=== PATIENT | male | born 1960 | race Caucasian/White ===

== ENCOUNTER 2021-03-19 13:53 | Emergency (ER) | payer SELFPAY ==
[~2021-03-19] VITALS: Ht 185.4 cm; Wt 132.5 kg
--- NOTE | 2021-03-19 14:24 | EKG ---
[address] [address] Test Date: 2021-03-19 Test Time: 14:17:21 Pat Name: FERNANDA HERMAN Department: Room: Gender: M Creative Coordinator: MERLENE : 1960 Requested By: HAJA SCHULER Order Number: [id number] Reading MD: Nolan Lara MD Measurements Intervals [place] Rate: 70 P: 46 VT: 196 QRS: 20 QRSD: 94 T: 23 QT: 384 QTc: 417 Interpretive Statements SINUS RHYTHM Electronically Signed On 03-21-2021 13:58:54 [employer]PERATOR by Nolan Lara MD
[2021-03-19 14:33] LABS: BASO % 1 % (0-3); EOS # 0.1 x10^3/uL (0.0-0.7); EOS % 1 % (0-3); HEMATOCRIT 43.7 % (39.0-53.0); HEMOGLOBIN 14.5 g/dL (13.0-17.5); LYMPH # 2.1 x10^3/uL (1.0-4.8); LYMPH % 24 % (24-48); MEAN CORPUSCULAR HEMOGLOBIN 28 pg (25-35); MEAN CORPUSCULAR HGB CONC 33 g/dL (31-37); MEAN CORPUSCULAR VOLUME 83 fL (79-100); MONO # 0.7 x10^3/uL (0.0-1.1); MONO % 8 % (0-9); NEUT # 5.8 x10^3uL (1.8-7.7); NEUT % 66 % (31-73); PLATELET COUNT 242 x10^3/uL (140-400); RED BLOOD COUNT 5.26 x10^6/uL (4.30-5.70); RED CELL DISTRIBUTION WIDTH 13.3 % (11.5-14.5); WHITE BLOOD COUNT 8.7 x10^3/uL (4.0-11.0)
--- NOTE | 2021-03-19 14:45 | PHYS DOC ---
Past History Past Surgical History: Cholecystectomy, Other Additional Past Surgical Histo: bilat shoulder Alcohol Use: Rarely General Adult EDM: Chief Complaint: SHORTNESS OF BREATH HPI: HPI: 60-year-old male presents with shortness of breath. The patient had an episode yesterday where he was helping a friend move a couch and he became extremely winded after only going up 1 flight of stairs. The patient was then fatigued for the rest of the day. This was an unusual level of fatigue for the patient. He had COVID-19 1 year ago and has had some breathing issues since that time but not this severe. He decided he should come in for evaluation to make sure was not cardiac issue. He denies chest pain or diaphoresis. He has no other specific symptoms or complaints at this time. Review of Systems: Review of Systems: Constitutional: Denies fever or chills Eyes: Denies change in visual acuity HENT: Denies nasal congestion or sore throat Respiratory: shortness of breath Cardiovascular: Denies chest pain or edema GI: Denies abdominal pain, nausea, vomiting, bloody stools or diarrhea : Denies dysuria Musculoskeletal: Denies back pain or joint pain Integument: Denies rash Neurologic: Denies headache, focal weakness or sensory changes Endocrine: Denies polyuria or polydipsia Lymphatic: Denies swollen glands Psychiatric: Denies depression or anxiety Physical Exam: PE: Constitutional: Well developed, well nourished, morbidly obese, no acute distress, non-toxic appearance. [] HENT: Normocephalic, atraumatic, bilateral external ears normal, oropharynx moist, no oral exudates, nose normal. [] Eyes: PERRLA, EOMI, conjunctiva normal, no discharge. [] Neck: Normal range of motion, no tenderness, supple, no stridor. [] Cardiovascular: Heart rate regular rhythm, no murmur [] Lungs & Thorax: Bilateral breath sounds clear to auscultation [] Abdomen: Bowel sounds normal, soft, no tenderness, no masses, no pulsatile masses. [] Skin: Warm, dry, no erythema, no rash. [] Back: No tenderness, no CVA tenderness. [] Extremities: No tenderness, no cyanosis, no clubbing, ROM intact, no edema. [] Neurologic: Alert and oriented X 3, normal motor function, normal sensory function, no focal deficits noted. [] Psychologic: Affect normal, judgement normal, mood normal. [] Current Patient Data: Vital Signs: Vital Signs Date Time Temp Pulse Resp B/P (MAP) Pulse Ox O2 Delivery O2 Flow Rate FiO2 03/19/21 14:04 97.8 79 20 146/93 (110) 96 Room Air EKG: EKG: [] Radiology/Procedures: Radiology/Procedures: [] Impressions: XR CHEST 1V CLINICAL INDICATIONS: Shortness of breath COMPARISON: February 21, 2012. Findings: No acute lung infiltrate or pleural effusion or pulmonary edema or lung mass or pneumothorax is seen. The heart size, pulmonary vasculature, mediastinum and both vidhi are stable. IMPRESSION: No acute radiographic abnormality is seen. Electronically signed by: Fernanda Freeman MD (03/19/2021 2:52 PM) [id number] DICTATED AND SIGNED BY: FERNANDA FREEMAN MD DATE: 03/19/21 1449 CC: HAJA SCHULER DO; ANNIE STEWARD ~MTH0 0 Heart Score: C/O Chest Pain: No Risk Factors: Risk Factors: DM, Current or recent (<one month) smoker, HTN, HLP, family history of CAD, obesity. Risk Scores: Score 0 - 3: 2.5% MACE over next 6 weeks - Discharge Home Score 4 - 6: 20.3% MACE over next 6 weeks - Admit for Clinical Observation Score 7 - 10: 72.7% MACE over next 6 weeks - Early Invasive Strategies Course & Med Decision Making: Course & Med Decision Making Pertinent Labs and Imaging studies reviewed. (See chart for details) The patient's labs are unremarkable. His troponin is negative. His EKG is unremarkable. His chest x-ray is negative for acute findings. The patient may be short of breath due to long-term effects of COVID-19 or deconditioning. I have advised that he follow-up with his primary care provider to consider stress test if he keeps having episodes like this. He is stable for discharge at this time. [] Dragon Disclaimer: Dragon Disclaimer: This electronic medical record was generated, in whole or in part, using a voice recognition dictation system. Departure Departure: Impression: Primary Impression: Short of breath on exertion Referrals: ANNIE STEWARD (PCP) Patient Instructions: Shortness of Breath, [id number] HAJA SCHULER DO Mar 19, 2021 14:45
[2021-03-19 14:48] LABS: CALCIUM 9.5 mg/dL (8.5-10.1); CREATININE 1.1 mg/dL (0.7-1.3); GFR 68.3; POTASSIUM 3.9 mmol/L (3.5-5.1)
[2021-03-19 14:53] LABS: ALBUMIN 4.1 g/dL (3.4-5.0); ALBUMIN/GLOBULIN RATIO 1.2 (1.0-1.7); TOTAL BILIRUBIN 0.6 mg/dL (0.2-1.0); TOTAL PROTEIN 7.4 g/dL (6.4-8.2)
--- NOTE | 2021-03-19 14:54 | RAD ---
XR CHEST 1V CLINICAL INDICATIONS: Shortness of breath COMPARISON: February 21, 2012. Findings: No acute lung infiltrate or pleural effusion or pulmonary edema or lung mass or pneumothora x is seen. The heart size, pulmonary vasculature, mediastinum and both vidhi are stable. IMPRESSION: No acute radiographic abnormality is seen. Electronically signed by: Rodriguez Freeman MD (03/19/2021 2:52 PM) [id number]
[2021-03-19 15:16] LABS: BACTERIA,URINE 0 /HPF (0-FEW); BILIRUBIN,URINE NEG (NEG); CLARITY,URINE CLEAR; COLOR,URINE YELLOW; GLUCOSE,URINE NEG (NEG); NITRITE,URINE NEG (NEG); RBC,URINE 0 /HPF (0-2); UROBILINOGEN,URINE 0.2 mg/dL (0.2 mg/dL); WBC,URINE 0 /HPF (0-4)
[2021-03-19 15:30] VITALS: BP 121/87
== END 2021-03-19 15:52 | disposition home or self-care (01) ==
LOC: ER 13:53
DX: R06.02 Shortness of breath (principal); R53.83 Other fatigue
CPT/HCPCS: 36415; 71045; 80053; 81001; 84484; 85025; 93005; 99285